=== PATIENT | female | born 1940 | race Caucasian/White ===

== ENCOUNTER 2018-05-01 11:04 | Emergency (ER) | payer SELFPAY ==
[~2018-05-01] VITALS: Ht 162.6 cm; Wt 77.7 kg
[2018-05-01 11:10] VITALS: BP 167/70; Ht 162.6 cm; Wt 77.7 kg
[2018-05-01] MEDS ORDERED: ELIQUIS2.5 MG PO (11:12)
[2018-05-01] MEDS ORDERED: XANAX0.25 MG PO (11:12)
[2018-05-01] MEDS ORDERED: CELEXA20 MG PO (11:13)
[2018-05-01] MEDS ORDERED: LIPITOR10 MG PO (11:13)
[2018-05-01] MEDS ORDERED: KEFLEX500 MG PO (11:13)
[2018-05-01] MEDS ORDERED: COREG6.25 MG PO (11:13)
[2018-05-01] MEDS ORDERED: NEXIUM40 MG PO (11:14)
[2018-05-01] MEDS ORDERED: CARDIZEM120 MG PO (11:14)
[2018-05-01] MEDS ORDERED: K-DUR20 MEQ PO (11:15)
[2018-05-01] MEDS ORDERED: TIROSINT13 MCG (11:15)
[2018-05-01] MEDS ORDERED: LASIX40 MG PO (11:15)
[2018-05-01] MEDS ORDERED: MYSOLINE 50 MG50 MG (11:16)
== END 2018-05-01 12:46 | disposition left against medical advice (07) ==
LOC: D.ER 11:04
DX: I10 Essential (primary) hypertension (principal)